=== PATIENT | male | born 1980 | race Two or more races ===

== ENCOUNTER 2023-08-04 12:36 | Emergency (ER) | payer OTHER ==
[~2023-08-04] VITALS: Ht 167.6 cm; Wt 95.3 kg
[2023-08-04] MEDS ORDERED: ZESTRIL5 MG (12:45)
== END 2023-08-04 16:44 | disposition home or self-care (01) ==
LOC: ER 12:37
DX: M77.8 Other enthesopathies, not elsewhere classified (principal); I10 Essential (primary) hypertension
CPT/HCPCS: 96372; 99284; J1885